=== PATIENT | female | born 1950 ===

== ENCOUNTER 2020-12-18 11:13 | Day surgery (SDC) | payer OTHER ==
[~2020-12-18 11:13] MED LIST: HUMALOG100 UNIT/1; IRBESARTAN75 MG PO; LANTUS; SIMVASTA PO
== END 2020-12-18 21:32 | disposition home or self-care (01) ==
LOC: CIR.AMB 11:13
PROVIDERS: ATTEND Obstetrics & Gynecology
DX: C54.1 Malignant neoplasm of endometrium (principal); Z20.822 Contact with and (suspected) exposure to COVID-19